=== PATIENT | male | born 1950 | race Two or more races ===

== ENCOUNTER 2018-07-28 20:50 | Emergency (ER) | payer MEDICARE, BC ==
[~2018-07-28] VITALS: Ht 172.7 cm; Wt 68.0 kg
[~2018-07-28 20:50] MED LIST: KEFLEX500 MG ORAL
[2018-07-28 21:10] VITALS: BP 74/48
--- NOTE | 2018-07-28 21:20 | NUR ---
ED Nurse Note: c/o fever since last night, today 102F at 1999, took tylenol 1000mg prior to coming in and pain on fistula site. temp at triage 100.3 dialysis on mon//mon, had dialysis today.. seen by katia. will continue to monitor
[2018-07-28] MEDS ORDERED: Cefepime HCl 1 GM in NS 55 ML IV SCH (21:30)
[2018-07-28] MEDS ORDERED: Vancomycin 1 GM in NS 275 ML IV ONE (21:30)
--- NOTE | 2018-07-28 21:32 | Emergency Room Report ---
History of Present Illness General Chief Complaint: Fever Source: Patient Present Illness HPI This is a 67-year-old male with a history renal failure on hemodialysis. He has from a catheter for dialysis. He also had a newly placed right arm fistula couple days ago. He presents with chief point of fever. Onset last night. It was 100. Today was 102. Better with Tylenol. No nausea no vomiting. No cough. Just generalized body aches and weakness. he had his flu shot this season. No other complaint. Allergies: Coded Allergies: No Known Allergies (Unverified , 07/28/18) Patient History Past Medical History: see triage record, old chart reviewed Past Surgical History: other Pertinent Family History: none Social History: Denies: smoking Immunizations: other Reviewed Nursing Documentation: PMH: Agreed; PSxH: Agreed Nursing Documentation-PMH Hx Dialysis: Yes - R Av shunt, on //, ESRD Review of Systems Constitutional: Reports: fever, malaise Eye: Denies: eye pain, blurred vision ENT: Denies: ear pain, nose congestion, throat swelling Respiratory: Denies: cough, shortness of breath Cardiovascular: Denies: chest pain, palpitations Gastrointestinal: Denies: abdominal pain, diarrhea, nausea, vomiting Musculoskeletal: Denies: back pain, joint pain Skin: Denies: rash Neurological: Denies: headache, numbness Endocrine: Denies: increased thirst, increased urine Hematologic/Lymphatic: Denies: easy bruising All Other Systems: negative except mentioned in HPI Physical Exam Vital Signs Date Time Temp Pulse Resp B/P (MAP) Pulse Ox O2 Delivery O2 Flow Rate FiO2 07/28/18 21:04 100.2 120 18 74/48 93 Room Air vitals with fever and hypotension Sp02 EP Interpretation: reviewed, normal General Appearance: well appearing, no apparent distress, alert Head: normocephalic, atraumatic Eyes: bilateral eye PERRL, bilateral eye EOMI ENT: hearing grossly normal, normal pharynx Neck: full range of motion, supple, no meningismus Respiratory: chest non-tender, lungs clear, normal breath sounds, other - Left chest: Permacath site is clean, no redness. No tender Cardiovascular #1: regular rate, rhythm, no murmur Gastrointestinal: normal bowel sounds, non tender, no mass, no organomegaly, no bruit, non-distended Musculoskeletal: back normal, gait/station normal, normal range of motion, other - Right arm: Fistula site with erythema and warmth. Psychiatric: mood/affect normal Skin: warm/dry Medical Decision Making Diagnostic Impression: Primary Impression: Sepsis Qualified Codes: A41.9 - Sepsis, unspecified organism Additional Impressions: UTI (urinary tract infection) Qualified Codes: N30.00 - Acute cystitis without hematuria Cellulitis of arm, right ER Course Patient presents with sepsis. Probably from UTI and wound infection. There is no abscess noted. His baseline blood pressure usually runs systolic 70s to 80s. This is per patient and I confirmed with Dr. Oro, who looked through his records to confirm this. Initial lactic acid was elevated. After IV fluid it came down to normal. Patient felt better. Heart rate normalized. No evidence of septic shock. I discussed the case with Dr. Oro who will follow the culture. Since pt received antibiotics here, will dc home. We'll discharge home with antibiotics for Bactrim and Keflex. Lab Results Impression labs with leukocytosis Rhythm Strip Diag. Results EP Interpretation: yes Rate: 93 Rhythm: NSR, no PVC's, no ectopy Chest X-Ray Diagnostic Results Chest X-Ray Diagnostic Results : Chest X-Ray Ordered: Yes # of Views/Limited/Complete: 1 View Indication: Shortness of Breath EP Interpretation: Yes Interpretation: no consolidation, no effusion, no pneumothorax, no acute cardiopulmonary disease Impression: No acute disease Electronically Signed by: Nitin Leach MD Last Vital Signs Date Time Temp Pulse Resp B/P (MAP) Pulse Ox O2 Delivery O2 Flow Rate FiO2 07/28/18 21:04 100.2 120 18 74/48 93 Room Air Status: improved Disposition: HOME, SELF-CARE Condition: Stable Scripts Cephalexin* (KEFLEX*) 500 Mg Capsule 500 MG ORAL TID, #21 CAP Prov: Nitin Leach MD 07/29/18 Trimethoprim/Sulfamethoxazole 160/800* (BACTRIM DS TABLET*) 1 Each Tablet 1 TAB ORAL Q12H, #14 TAB 0 Refills Prov: Nitin Leach MD 07/29/18 Additional Instructions: Follow-up with Dr. Oro in 2-3 days. Return if symptom worsen. Nitin Leach MD Jul 28, 2018 21:32
[2018-07-28] MEDS ORDERED: Heparin 1000 units/ml 1ml Vial ONE (21:45)
[2018-07-28 21:56] LABS: BILIRUBIN, URINE NEGATIVE (NEGATIVE); COLOR,URINE AMBER; GLUCOSE, URINE (UA) 3+ (NEGATIVE); KETONES,URINE NEGATIVE (NEGATIVE); LEUKOCYTE ESTERASE ,URINE 1+ (NEGATIVE); NITRITE,URINE NEGATIVE (NEGATIVE); PH,URINE 8 (4.5-8.0); PROTEIN,URINE 4+ (NEGATIVE); UROBILINOGEN,URINE NORMAL MG/DL (0.0-1.0)
[2018-07-28 21:57] LABS: APPEARANCE,URINE SLIGHTLY CLOUDY; BASOPHILS % (AUTO) 1.1 % (0.0-2.0); EOSINOPHILS % (AUTO) 0.3 % (0.0-3.0); HEMATOCRIT 36.4 % (42.0-52.0); HEMOGLOBIN 11.5 G/DL (14.2-18.0); LYMPHOCYTES % (AUTO) 15.9 % (20.0-45.0); MEAN CORPUSCULAR VOLUME 92 FL (80-99); NEUTROPHILS % (AUTO) 74.8 % (45.0-75.0); PLATELET COUNT 418 K/UL (150-450); RED BLOOD COUNT 3.97 M/UL (4.70-6.10); RED CELL DISTRIBUTION WIDTH 17.9 % (11.6-14.8); WHITE BLOOD COUNT 17.9 K/UL (4.8-10.8)
--- NOTE | 2018-07-28 21:57 | Diagnostic Imaging Report ---
History: SOB Exam: XR CXR 1 VIEW Comparison: None available FINDINGS: Mild streaky markings at the bases may represent atelectasis or developing infiltrate. Tunneled left-sided dialysis catheter noted. Cardiac silhouette appears within limits. Pulmonary vascularity appears within limits. The visualized osseous structures appear unremarkable. Surgical clips noted left upper quadrant. IMPRESSION: Mild streaky markings at the bases may represent atelectasis or developing infiltrate. Tunneled left-sided dialysis catheter noted.
[2018-07-28 22:12] LABS: ANION GAP 9 mmol/L (5-15); BLOOD UREA NITROGEN 26 mg/dL (7-18); CALCIUM 8.6 MG/DL (8.5-10.1); CARBON DIOXIDE 29 MMOL/L (21-32); CHLORIDE 103 MMOL/L (98-107); CREATININE 4.9 MG/DL (0.55-1.30); SODIUM 141 MMOL/L (136-145)
[2018-07-28 22:17] LABS: ALANINE AMINOTRANSFERASE 15 U/L (12-78); ALBUMIN 2.1 G/DL (3.4-5.0); ALBUMIN/GLOBULIN RATIO 0.4 (1.0-2.7); ALKALINE PHOSPHATASE 118 U/L (46-116); ASPARTATE AMINO TRANSFERASE 36 U/L (15-37); BILIRUBIN,TOTAL 0.7 MG/DL (0.2-1.0)
[2018-07-28 23:30] VITALS: BP 84/50
[2018-07-29] MEDS ORDERED: BACTRIM DS TAB1 EAC1 ORAL (00:22)
[2018-07-29] MEDS ORDERED: CEPHALEXIN500 MG ORAL (00:22)
[2018-07-29] MEDS ORDERED: Heparin Sod 1000 units/ml 10ml INJ ONE (00:30)
[2018-07-29 01:00] VITALS: BP 84/50
--- NOTE | 2018-07-29 01:00 | NUR ---
ED Nurse Note: Patient cleared for discharge per ERMD.VSS. Patient given prescriptions and discharge instructions; verbalized understanding. ID band removed. Patient ambulated steady with all personal belongings.
== END 2018-07-29 01:00 | disposition home or self-care (01) ==
LOC: EMR 21:41
DX: A41.9 Sepsis, unspecified organism (principal); N39.0 Urinary tract infection, site not specified; L03.113 Cellulitis of right upper limb; N18.6 End stage renal disease; Z99.2 Dependence on renal dialysis
CPT/HCPCS: 36415; 71045; 80053; 81003; 83605; 85025; 86710; 87040; 87070; 87086; 87205; 96365; 96366; 96368; 99284; J0692; J1644; J3370; J7040; J7050